=== PATIENT | female | born 1980 | race African-American/Black ===

== ENCOUNTER 2017-11-11 14:38 | Emergency (ER) | payer MEDICAID ==
[~2017-11-11] VITALS: Ht 160 cm; Wt 81.0 kg
[2017-11-11] MEDS ORDERED: ACETAMINOPHEN 325MG TABLET PO ONE (20:30)
[2017-11-11 21:00] VITALS: BP 150/90
== END 2017-11-11 21:00 | disposition home or self-care (01) ==
LOC: ER 14:38
DX: S80.861A Insect bite (nonvenomous), right lower leg, initial encounter (principal); L03.115 Cellulitis of right lower limb; W57.XXXA Bitten or stung by nonvenomous insect and other nonvenomous arthropods, initial encounter; Y93.9 Activity, unspecified; Y92.9 Unspecified place or not applicable
CPT/HCPCS: 99283

== ENCOUNTER 2018-11-07 08:39 | Emergency (ER) | payer MEDICAID ==
[~2018-11-07] VITALS: Ht 160 cm; Wt 90.0 kg
[2018-11-07] MEDS ORDERED: MORPHINE SULFATE 4 MG/ML CPJ (NOT FOR IM USE) IV ONE (09:15)
[2018-11-07 09:37] LABS: BASOPHILS % 0.6 % (0.0-2.0); EOSINOPHILS % 0.8 % (0.0-5.0); HEMATOCRIT. 40.9 % (36.0-48.0); HEMOGLOBIN. 13.4 g/dL (12.0-16.0); LYMPHOCYTES % 35.1 % (20.0-50.0); MEAN CORPUSCULAR HEMOGLOBIN 27.2 pg (28.0-32.0); MEAN PLATELET VOLUME 9.2 fl (7.4-10.4); MONOCYTES % 5.1 % (2.0-8.0); NEUTROPHILS % 58.4 % (40.0-76.0); PLATELET 139 x1000/uL (130-400); RED BLOOD CELL COUNT 4.93 mill/uL (4.2-5.4); RED CELL DISTRIBUTION WIDTH 14.1 % (11.6-14.6)
[2018-11-07 09:43] LABS: CHLORIDE 110 mEq/L (98-107)
[2018-11-07 12:10] LABS: CLARITY URINE CLOUDY (CLEAR); COLOR URINE YELLOW (YELLOW); KETONES URINE 2+ (NEGATIVE); LEUKOCYTE ESTERASE URINE NEGATIVE (NEGATIVE); NITRITE URINE NEGATIVE (NEGATIVE); OCCULT BLOOD URINE NEGATIVE (NEGATIVE); PH URINE 6.5 (4.5-8.0); PROTEIN URINE TRACE (NEGATIVE); SPECIFIC GRAVITY URINE 1.034 (1.005-1.030)
[2018-11-07 12:50] VITALS: BP 120/69
== END 2018-11-07 13:10 | disposition home or self-care (01) ==
LOC: ER 08:39
DX: R09.1 Pleurisy (principal); H91.91 Unspecified hearing loss, right ear; Z87.820 Personal history of traumatic brain injury; Z90.5 Acquired absence of kidney; F12.90 Cannabis use, unspecified, uncomplicated
CPT/HCPCS: 36415; 71045; 80053; 81003; 83880; 84484; 85025; 93005; 96374; 99284; J2270

== ENCOUNTER 2018-12-05 14:07 | Emergency (ER) | payer MEDICAID ==
[~2018-12-05] VITALS: Ht 160 cm; Wt 87.0 kg
[2018-12-05 15:40] VITALS: BP 117/51
== END 2018-12-05 19:00 | disposition home or self-care (01) ==
LOC: ER 18:40
DX: S80.862A Insect bite (nonvenomous), left lower leg, initial encounter (principal); W57.XXXA Bitten or stung by nonvenomous insect and other nonvenomous arthropods, initial encounter; Y93.89 Activity, other specified; Y92.89 Other specified places as the place of occurrence of the external cause; F12.90 Cannabis use, unspecified, uncomplicated
CPT/HCPCS: 99283

== ENCOUNTER 2018-12-07 10:33 | Emergency (ER) | payer MEDICAID ==
[~2018-12-07] VITALS: Ht 160 cm; Wt 89.0 kg
[2018-12-07] MEDS ORDERED: ONDANSETRON HCL 4MG/2ML INJ IV STA (11:01)
[2018-12-07] MEDS ORDERED: MORPHINE SULFATE 4 MG/ML CPJ (NOT FOR IM USE) IV STA (11:01)
[2018-12-07] MEDS ORDERED: SODIUM CHLORIDE 0.9% 1,000 ML IV ONE (11:01)
[2018-12-07] MEDS ORDERED: CEFTRIAXONE 1 G PREMIX 50 ML IV ONE (11:15)
[2018-12-07 12:04] LABS: BASOPHILS % 0.2 % (0.0-2.0); EOSINOPHILS % 0.6 % (0.0-5.0); HEMOGLOBIN. 12.8 g/dL (12.0-16.0); LYMPHOCYTES % 14.9 % (20.0-50.0); MEAN CORPUSCULAR HEMOGLOBIN 27.3 pg (28.0-32.0); MEAN CORPUSCULAR VOLUME 83.1 fL (81.0-99.0); MONOCYTES % 3.7 % (2.0-8.0); NEUTROPHILS % 80.6 % (40.0-76.0); RED CELL DISTRIBUTION WIDTH 13.5 % (11.6-14.6)
[2018-12-07 12:07] LABS: CHLORIDE 111 mEq/L (98-107)
[2018-12-07 12:19] LABS: CLARITY URINE CLEAR (CLEAR); COLOR URINE YELLOW (YELLOW); KETONES URINE NEGATIVE (NEGATIVE); LEUKOCYTE ESTERASE URINE 1+ (NEGATIVE); NITRITE URINE NEGATIVE (NEGATIVE); OCCULT BLOOD URINE NEGATIVE (NEGATIVE); PH URINE 6.5 (4.5-8.0); PROTEIN URINE NEGATIVE (NEGATIVE); SPECIFIC GRAVITY URINE 1.007 (1.005-1.030); UROBILINOGEN URINE 0.2 E.U./dL (0.2-1.0)
[2018-12-07 12:20] LABS: HCG SCREEN NEGATIVE
[2018-12-07] MEDS ORDERED: SULFAMETHOXAZOLE/TRIMETHOPRIM 800/160MG TABLET PO ONE (12:45)
[2018-12-07] MEDS ORDERED: IOHEXOL-300 100 ML BOTTLE ONE (12:53)
[2018-12-07 13:22] LABS: PLATELET 156 x1000/uL (130-400)
[2018-12-07 16:42] VITALS: BP 114/68
== END 2018-12-07 16:48 | disposition home or self-care (01) ==
LOC: ER 10:33
DX: R10.0 Acute abdomen (principal); L03.115 Cellulitis of right lower limb; F12.90 Cannabis use, unspecified, uncomplicated; Z87.828 Personal history of other (healed) physical injury and trauma
CPT/HCPCS: 36415; 71045; 74177; 80053; 81003; 81025; 83690; 84703; 85025; 93005; 93970; 96365; 96375; 99284; J0696; J2270; J2405; J7030; Q9967; Z7610

== ENCOUNTER 2023-02-01 15:20 | Emergency (ER) | payer MEDICAID ==
[~2023-02-01] VITALS: Ht 160 cm; Wt 103.0 kg
[2023-02-01 15:25] VITALS: TEMP 98.8; O2SAT 99
[2023-02-01] MEDS ORDERED: IBUPROFEN 600MG TABLET PO ONE (17:00)
[2023-02-01 17:17] VITALS: BP 137/78; PULSE 81; RESP 18
== END 2023-02-01 17:19 | disposition home or self-care (01) ==
LOC: ER 15:29
DX: S99.911A Unspecified injury of right ankle, initial encounter (principal); F12.10 Cannabis abuse, uncomplicated; Z98.890 Other specified postprocedural states; X58.XXXA Exposure to other specified factors, initial encounter; Y93.89 Activity, other specified; Y92.89 Other specified places as the place of occurrence of the external cause; Y99.8 Other external cause status
CPT/HCPCS: 73610; 99283; Z7610